=== PATIENT | male | born 2000 | race Caucasian/White ===

== ENCOUNTER → 2023-12-01 | Outpatient (CLI) | payer BC ==
[2023-12-01 18:34] LABS: BASO # 0.03 K/mm3 (0.02-0.10); EOS # 0.38 K/mm3 (0.04-0.40); EOS % 4.4 % (0.0-4.0); HEMATOCRIT 47.1 % (42.0-52.0); HEMOGLOBIN 16.4 g/dL (13.5-18.0); LYMPH# 1.84 K/mm3 (1.50-4.00); MEAN CELL VOLUME 83 fl (78-100); MEAN CORPUSCULAR HEMOGLOBIN 29 pg (27-31); MEAN CORPUSCULAR HGB CONC 35 g/dL (33-37); MEAN PLATELET VOLUME 10.1 fl (7.4-10.4); MONO # 0.58 K/mm3 (0.20-0.80); PLATELET COUNT 288 K/mm3 (130-400); RED CELL DISTRIBUTION WIDTH 12.4 % (11.5-14.5); WHITE BLOOD COUNT 8.6 K/mm3 (4.8-10.8)
[2023-12-01 18:42] LABS: ALBUMIN 4.5 g/dL (3.5-5.0)
[2023-12-01 18:44] LABS: CALCIUM 9.8 mg/dL (8.3-10.5)
[2023-12-01 18:45] LABS: TOTAL PROTEIN 7.4 g/dL (6.4-8.3)
[2023-12-01 18:47] LABS: TOTAL BILIRUBIN 0.8 mg/dL (0.2-1.2)
== END ==
LOC: LAB 17:50
PROVIDERS: Nurse Practitioner Family
DX: R00.2 Palpitations (principal); Z87.898 Personal history of other specified conditions